=== PATIENT | female | born 1990 | race Caucasian/White ===

== ENCOUNTER 2019-02-09 13:40 | Emergency (ER) | payer BC ==
[~2019-02-09 13:40] MED LIST: ISOVUE-370 76%-LOCM 1 ML ONE
[2019-02-09] MEDS ORDERED: Ondansetron PF 4 MG/2 ML Vial ONE ×2 (14:29→16:25)
[2019-02-09] MEDS ORDERED: Morphine 4 MG/ML VIAL ONE ×2 (14:29→17:29)
[2019-02-09 15:10] LABS: Hemoglobin 14.2 g/dL (12.0-16.0); Mean Corpuscular HGB CONC 33.8 g/dL (32.0-36.0); Mean Corpuscular Volume 97.6 fL (78.0-98.0); Mean Platelet Volume 8.8 fL (7.4-10.4); Platelet Count 140 thou/uL (130-400); RBC Distribution Width 11.3 % (11.5-14.5); Red Blood Cell (RBC) Count 4.31 mill/uL (4.20-5.40); White Blood Cell (WBC) Count 12.6 thou/uL (4.8-10.8)
[2019-02-09 15:23] LABS: Band 26 % (5-11); Lymphocytes 8 % (21-51); MDiff Complete? YES; Monocytes 3 % (0-10); Neutrophil 62 % (42-75); Platelet Morphology Comment Appears Adequate; Pregnancy Test - Urine (BHCG) Negative (Negative); Pregu Control Background? CLEAR/WHITE (CLR/WHITE); Pregu Control Bar Appear? YES (CONTROL BAR); RBC Morphology Normal; Specific Gravity 1.016 (1.002-1.036)
[2019-02-09 15:30] LABS: ALT (SGPT) 9 U/L (8-55); AST (SGOT) 11 U/L (5-34); Albumin 4.4 g/dL (3.5-5.0); Alkaline Phosphatase 63 U/L (40-150); Anion Gap 14 mmol/L (10-20); BUN (Urea Nitrogen) 10 mg/dL (7.0-18.7); Bilirubin, Total 1.3 mg/dL (0.2-1.2); Calc. Creatinine Clearance 0 mL/min (70-130); Carbon Dioxide 26 mmol/L (22-29); Chloride 100 mmol/L (98-107); Estimated GFR-MDRD 68; Globulin 3.2 g/dL (2.4-3.5); Glucose 88 mg/dL (70-105); Potassium 3.6 mmol/L (3.5-5.1); Protein, Total 7.6 g/dL (6.0-8.3); Sodium 136 mmol/L (136-145)
[2019-02-09 15:32] LABS: Bilirubin Negative (Negative); Blood, Urine Moderate (Negative); Clarity Cloudy (Clear); Glucose, Urine (Dipstick) Negative (Negative); Leukocyte Moderate (Negative); Nitrite Negative (Negative); Protein, Urine (Dipstick) 100 mg/dL (Neg-Trace); Specific Gravity, Urine 1.016 (1.002-1.036); Urobilinogen 0.2 mg/dL (0.2-1.0)
[2019-02-09 15:41] LABS: Bacteria/HPF None Seen HPF (None Seen); Hyaline Casts/LPF NONE SEEN LPF (0-3 Hyaline)
[2019-02-09] MEDS ORDERED: cefTRIAXone\\ROCEPHIN 1 GM VIAL ONE (16:20)
[2019-02-09] MEDS ORDERED: Ketorolac Tromethamine 30 MG/ML VIAL ONE (16:20)
--- NOTE | 2019-02-09 17:18 | CT ---
Contrast-enhanced CTA chest and contrast-enhanced CT images abdomen and pelvis. Contrast-enhanced CTA chest obtained. 2-D and 3-D reconstruction images performed on an independent 3 -D workstation. HISTORY: Dysuria or urinary frequency and fevers and chills. CTA chest demonstrates the contrast to the predominantly in the aorta. The contrast is not within the pulmonary arteries. If there is concern for pulmonary emboli repeat CTA chest is recommended if indicated. The thoracic aorta is unremarkable with no evidence of dissections or aneurysms. The lung parenchyma is unremarkable with no definite evidence of pneumonia or masses. No evidence of pneumothorax seen. Contrast-enhanced CT images of the abdomen pelvis demonstrate the liver, spleen, gallbladder, pancrea s, adrenal glands and kidneys to be unremarkable. No dilated loops of small bowel seen. Bilateral ovarian cyst or cystic lesions are present. The colon is not significantly distended. IMPRESSION: Unremarkable CT images of chest, abdomen and pelvis.
[2019-02-09] MEDS ORDERED: Acetaminophen 500 MG TAB ONE (17:42)
== END 2019-02-09 18:18 | disposition home or self-care (01) ==
LOC: ERS 13:40
DX: N12 Tubulo-interstitial nephritis, not specified as acute or chronic (principal); Z79.899 Other long term (current) drug therapy; Z79.1 Long term (current) use of non-steroidal anti-inflammatories (NSAID); Z87.442 Personal history of urinary calculi
CPT/HCPCS: 71275; 74177; 80053; 81003; 81015; 81025; 85025; 85379; 87077; 87086; 87186; 96361; 96365; 96375; 96376; J0696; J1885; J2270; J2405; Q9966